=== PATIENT | male | born 1975 | race African-American/Black ===

== ENCOUNTER 2019-02-16 21:08 | Emergency (ER) | payer SELFPAY ==
[~2019-02-16] VITALS: Ht 185.4 cm; Wt 86.3 kg
[2019-02-16 21:17] VITALS: BP 155/98
== END 2019-02-17 02:00 | disposition left against medical advice (07) ==
LOC: ER 21:08
DX: Z53.21 Procedure and treatment not carried out due to patient leaving prior to being seen by health care provider (principal)